=== PATIENT | male | born 1965 | race African-American/Black ===

== ENCOUNTER 2018-07-24 13:13 | Inpatient (IN) | payer BC ==
[~2018-07-24] VITALS: Ht 182.9 cm; Wt 129.7 kg
[2018-07-24] VITALS (7 sets, daily range): BP systolic 152–202; BP diastolic 32–140
--- NOTE | 2018-07-24 13:19 | NUR ---
PT BROUGHT TO ROOM 3 AND GIVEN GOWN TO CHANGE INTO. PT'S PRIMARY NURSE ARRIVED IN ROOM, PRIOR TO RN PRIMARY CARE BEING PLACED ON PT. NOTIFIED TECH THAT EKG NEEDED TO BE DONE.
[2018-07-24 14:35] LABS: BASOPHILS 0.9 % (0.0-2.0); HEMATOCRIT 42.6 % (42.0-52.0); HEMOGLOBIN 14.2 gm/dL (14.0-18.0); LYMPHOCYTES 23.4 % (24.0-44.0); MCH 29.1 pg (26.0-34.0); MCHC 33.4 g/dL (28.0-37.0); MCV 87.2 fL (80.0-100.0); MONOCYTES 10.2 % (1.0-8.0); PLATELET COUNT 246 thou/uL (150-400); POLYS 64.5 % (36.0-66.0); RBC 4.89 mil/uL (4.50-6.00); RDW 14.2 % (10.5-14.5); WBC 6.3 thou/uL (4.0-11.0)
[2018-07-24 14:39] LABS: CALCIUM 8.4 mg/dL (8.5-10.1); CREATININE 0.9 mg/dL (0.7-1.3); POTASSIUM 3.3 mmol/L (3.5-5.1)
[2018-07-24 14:50] LABS: ALBUMIN 3.6 g/dL (3.4-5.0); MAGNESIUM 1.8 mg/dL (1.8-2.4); TOTAL BILIRUBIN 1.1 mg/dL (<0.1-1.0); TOTAL PROTEIN 6.2 g/dL (6.4-8.2); TROPONIN-I 0.08 ng/mL (<0.06)
[2018-07-24 14:52] LABS: APTT 26.3 Seconds (24.5-32.8); D-DIMER 0.29 ug/mLFEU (0.19-0.50); PROTIME 10.8 Seconds (9.3-11.4)
[2018-07-24 14:55] LABS: AMP/METHAMP Negative (Negative); BARBITURATES Negative (Negative); BENZODIAZEPINES Negative (Negative); COCAINE Negative (Negative); METHADONE Negative (Negative); OPIATES Negative (Negative); PCP Negative (Negative)
--- NOTE | 2018-07-24 14:55 | NUR ---
ATTEMPTED TO CALL REPORT TO CCU 30 MIN AGO. NURSE NOT AVAILABLE AND WAS TO CALL BACK. NO CALL BACK. CALLED AGAIN AT THIS TIME AND REPORT GIVEN
[2018-07-24 16:13] LABS: CHOLESTEROL 229 mg/dL (<200); HDL CHOLESTEROL 40 mg/dL (>40); LDL CHOLESTEROL 166 mg/dL (<100); TC:HDL 5.7 Ratio (Not establshd); TRIGLYCERIDE 116 mg/dL (<150); VLDL 23 mg/dL (<40)
--- NOTE | 2018-07-24 16:48 | EKG ---
[place] [address] [facility] [place] [place] [address] ELECTROCARDIOGRAM REPORT Name: JESUS ALBERTO JAMES Room #: 363-P ADM IN M.R.#: [id number] ������������������ Admission: 07/24/18 ������������������ Attend Phys: Galileo Rangel Discharge: ������������������ Date of : 63 Report #: [id number] ����������������������������������������������������������������� [id number] THIS REPORT FOR: //name// [facility] ED Test Date: 2018-07-24 Test Time: 13:21:46 Pat Name: JESUS ALBERTO JAMES Department: Room: 363 Gender: M Mental Health Nurse Practitioner: SHARONA : 1965 Requested By: Alek Lugo Order Number: [id number] MD: Rex Wan Measurements Intervals [place] Rate: 93 P: 29 MI: 180 QRS: -36 QRSD: 85 T: 88 QT: 396 QTc: 493 Interpretive Statements Sinus rhythm Multiple premature complexes, vent & supraven Probable left atrial enlargement Abnormal R-wave progression, late transition Borderline prolonged QT interval Baseline wander in lead(s) I,aVL,V2 No previous ECG available for comparison Electronically Signed On 07-24-2018 16:48:29 CDT by Rex Wan [email or web address] ��������������������������������������������� <ELECTRONICALLY SIGNED> ���������������������������������������� By: Rex Wan MD, [facility] ��������������������������������������������� 07/24/18 1648 1321 1321 Rex Wan MD, [facility] /EPI
--- NOTE | 2018-07-24 18:02 | NUR ---
PATIENT HAS RESTED IN BE THROGH THE DAY. CONT ON SEIZURE PRECAUTIONS. FAMILY HAS BEEN HERE TO VISIT. HE DID COMPLAIN OF PAIN TO LEFT ELBOW BUT RATED IT AT A 3. STATES IT BOTHER HIM SOMETIMES. HE CONT ON IV FLUIDS. IV REINFORCED TO RIGH HAND A FEW TIMES. HE SLEEPS ON AND OFF DURING THE DAY. HE IS NOTED TO BE IMPULSIVE. WILL CONT WITH PLAN OF CARE.
--- NOTE | 2018-07-24 18:35 | NUR ---
PATIENT ADMITTED TO ROOM FROM ER. HE IS ALERT ORIENTED X4. PLEASANT WITH CARE. DOES NOT SEEM TO BE IN PAIN AT THIS TIME. HE AMBULATES WITH A STEADY GAIT. DOES NOT NEED ASSIST WITH TRANSFERS. EDUCATED AND LISTENED TO PATIENT'S NEEDS. WILL CONT WITH PLAN OF CARE.
[2018-07-25] VITALS (10 sets, daily range): BP systolic 116–201; BP diastolic 97–130
[2018-07-25 04:07] LABS: GLYCOHEMOGLOBIN (HGB A1C) 7.9 % (4.8-5.6)
--- NOTE | 2018-07-25 04:40 | NUR ---
Patient making slow progress towards outcome goals. BP remains elevated, treated with Hydralazine with little relief. Headache unrelieved with Tylenol, some relief with morphine. Rhythm sinus 80's to low 100's. Diuresing from lasix.
--- NOTE | 2018-07-25 04:43 | NUR ---
Patient usu home CPAP. Cont pulse ox per order, sats 92-98% on room air. Slept at intervals after Ambien.
[2018-07-25 06:10] LABS: ALBUMIN 3.3 g/dL (3.4-5.0); CALCIUM 8.5 mg/dL (8.5-10.1); CREATININE 0.9 mg/dL (0.7-1.3); POTASSIUM 3.5 mmol/L (3.5-5.1); TOTAL BILIRUBIN 0.9 mg/dL (<0.1-1.0); TOTAL PROTEIN 5.8 g/dL (6.4-8.2)
--- NOTE | 2018-07-25 18:20 | NUR ---
PATIEN CONT TO HAVE HIGH BP AND PRN HYDRAZALINE HAS BEEN ADMINISTERED. HE DID THROW UP IMMEDIATELY AFTER DINNER. STATES HE FEELS MUCH BETTER. FAMILY HERE TO VISIT. EDUCATED ON LOW SALT DIET. ON RA. PLEASANT WITH CARE. WILL CONT WITH PLAN OF CARE.
--- NOTE | 2018-07-25 19:57 | NUR ---
HYDRALAZINE GIVEN AT 1935, FOR 193/113 BLOOD PRESSURE. COMPLAINA THAT HIS HEADACHE THAT HAS BEEN BOTHERING HIM FOR HOURS IS REALLY UNCOMFORTABLE. HE REQUESTED SOMETHING ELS FOR HEADACHE PAIN. I GAVE MORPHINE FOR HIS HEADACHE HIS BLOOD PRESSURE AFTER THE HYDRALAZINE AND BEFORE THE MORPHINE WAS 160/103. HE S LYING DOWN AND I HAVE WARNED HIM TO CALL BEFORE GETTING OUT OF BED AND THAT HE COULD GET DIZZY, IF STANDING UP.
[2018-07-26] VITALS (8 sets, daily range): BP systolic 10–182; BP diastolic 88–134
--- NOTE | 2018-07-26 09:43 | 2DMMODE ---
[facility] [address] [email or web address] [address] 2 D/M-MODE ECHOCARDIOGRAM Name: JESUS ALBERTO JAMES Room #: 363-P ADM IN .R.#: [id number] ������������� Admission: 07/24/18 ������������� Attend Phys: Galileo Martin Discharge: ��� ������������� ��� Date of : 63 Date of Service: 07/26/18 0942 �� Report #: [id number] �������� ��������������������������������������������[id number] THIS REPORT FOR: //name// APPROVED REPORT Study performed: 07/25/2018 09:54:08 EXAM: Comprehensive 2D, Doppler, and color-flow Echocardiogram Patient Location: In-Patient Room #: 363 Status: routine BSA: 2.46 HR: 94 bpm Rhythm: PVC's Other Information Study Quality: Good Indications Chest Pain Hypertension/HDD 2D Dimensions RVDd: 43.89 mm IVSd: 20.99 (7-11mm) LVOT Diam: 26.09 (18-24mm) LVDd: 39.14 mm PWd: 21.81 (7-11mm) Ascending Ao: 41.72 (22-36mm) LVDs: 25.36 (25-40mm) Left Atrium: 51.43 (27-40mm) Aortic Root: 34.23 mm LV Single Plane 4CH: 68.97 % LV Single Plane 2CH: 54.18 % Volumes Left Atrial Volume (Systole) Single Plane 4CH: 79.03 mL Single Plane 2CH: 54.14 mL Aortic Valve AoV Peak Seven.: 1.28 m/s AO Peak Gr.: 6.55 mmHg AO Mean Gr.: 3.24 mmHg AO V2 Mean: 0.85 m/s AO V2 VTI: 25.34 cm [facility] [address] [place] [address] 2 D/M-MODE ECHOCARDIOGRAM Name: JESUS ALBERTO JAMES Room #: 363-P [facility]#: [id number] ������������� Admission: 07/24/18 ������������� Attend Phys: Galileo Martin Discharge: ��� ������������� ��� Date of : 63 Date of Service: 07/26/18 0942 �� Report #: [id number] �������� ��������������������������������������������[id number] Mitral Valve E/A Ratio: 2.5 MV Decel. Time: 94.65 ms MV E Max Seven.: 1.23 m/s MV A Seven.: 0.50 m/s MV PHT: 27.45 ms Pulmonary Valve PV Peak Seven.: 1.07 m/s PV Peak Gr.: 4.58 mmHg MO End Vmax: 1.36 m/s Pulmonary Vein P Vein S: 0.32 m/s P Vein A: 0.29 m/s P Vein D: 0.89 m/s P Vein A Dur.: 117.6 msec P Vein S/D Ratio: 0.36 Tricuspid Valve TR Peak Seven.: 4.00 m/s TR Peak Gr.: 64.00 mmHg Left Ventricle Left ventricle is grossly normal size. Severe concentric left ventricular hypertrophy. Left ventricular systolic function is normal. LVEF is 60-65%. Right Ventricle The right ventricle is normal size. The right ventricular systolic function is normal Atria The left atrium size is normal. The interatrial septum is intact with no evidence for an atrial septal defect. The right atrium size is normal. Aortic Valve The aortic valve is normal in structure. No aortic regurgitation is present. Mitral Valve The mitral valve is normal in structure. Mild to moderate mitral regurgitation. Tricuspid Valve Tricuspid valve is grossly normal in structure and function. Trace to mild tricuspid regurgitation. Estimated PAP 65-70 mmHg. [facility] [address] [place] [address] 2 D/M-MODE ECHOCARDIOGRAM Name: JACOBJESUS ALBERTO Room #: 363-P [facility] IN .R.#: [id number] ������������� Admission: 07/24/18 ������������� Attend Phys: Galileo Martin Discharge: ��� ������������� ��� Date of : 63 Date of Service: 07/26/18 0942 �� Report #: [id number] �������� ��������������������������������������������[id number] Pulmonic Valve The pulmonary valve is normal in structure. There is no pulmonic valvular regurgitation. Great Vessels The aortic root is normal in size. IVC is dilated and collapses >50% with inspiration. Pericardium There is no pericardial effusion. <Conclusion> Left ventricle is grossly normal size. Severe concentric left ventricular hypertrophy. LVEF is 60-65%. The right ventricle is normal size. The left atrium size is normal. The aortic valve is normal in structure. Mild to moderate mitral regurgitation. Trace to mild tricuspid regurgitation. Estimated PAP 65-70 mmHg. IVC is dilated and collapses >50% with inspiration. There is no pericardial effusion. ��������������������������������������������� <ELECTRONICALLY SIGNED> ���������������������������������������� By: Abel Valentine MD, FACC ��������������������������������������������� 07/26/1842 1 1 Abel Valentine MD, FACC /INF
--- NOTE | 2018-07-26 18:33 | NUR ---
CONT TO MONITOR PT BP CLOSELY. BP THIS PM HAS BEEN TRENDING DOWN. HE HAS RESTED IN ROOM MOST OF THE DAY. DID WALK THE [address] WAY ONCE A WHILE. HE DID COMPLAIN OF A HEADACHE AND PRN TYLENOL ADMINISTERED. IT WAS EFFECTIVE. HE IS NOW SLEEPING AFTER TAKING A SHOWER. WILL CONT WITH PLAN OF CARE.
--- NOTE | 2018-07-26 19:39 | NUR ---
DURING INITIAL ASSESSMENT PT REQUESTED TO BE TRANSFERRED TO [facility] IN [place]. HE STATED THAT THIS WAS HIS PREFERENCE. HE DENIES EVER HAVING BEEN TO THAT HOSPITAL BEFORE OR HAVING A PHYSICIAN AT THAT LOCALITY.
== END 2018-07-26 22:35 | disposition left against medical advice (07) | DRG 291 ==
LOC: ER 13:13 → EROBS 15:41 → 3W 16:23
PROVIDERS: Emergency Medicine; ADMIT Hospitalist
DX: I11.0 Hypertensive heart disease with heart failure (principal); J96.01 Acute respiratory failure with hypoxia; I16.0 Hypertensive urgency; E66.01 Morbid (severe) obesity due to excess calories; E11.9 Type 2 diabetes mellitus without complications; G47.33 Obstructive sleep apnea (adult) (pediatric); I50.9 Heart failure, unspecified; E78.5 Hyperlipidemia, unspecified; E87.6 Hypokalemia; Z68.38 Body mass index [BMI] 38.0-38.9, adult; Z79.899 Other long term (current) drug therapy; Z82.49 Family history of ischemic heart disease and other diseases of the circulatory system
CPT/HCPCS: 10879